=== PATIENT | male | born 1975 | race Caucasian/White ===

== ENCOUNTER 2022-04-23 18:28 | Emergency (ER) | payer OTHER ==
[2022-04-23 18:38] VITALS: BP 137/78
--- NOTE | 2022-04-23 19:01 | XRAY Report ---
PROCEDURE: Shoulder 3 View LT INDICATIONS: GLF; severe left shoulder pain TECHNIQUE: Views of the location were acquired. COMPARISON: None. FINDINGS: Bones: No fractures or dislocations. No suspicious bony lesions. Soft tissues: No suspicious soft tissue calcifications. IMPRESSION: Normal left shoulder Reviewed by: Shane Puckett on 04/23/2022 7:00 PM PDT Approved by: Shane Puckett on 04/23/2022 7:00 PM PDT Station ID: [id number]
--- NOTE | 2022-04-23 19:35 | ED Physician Documentation ---
PD HPI UPPER EXT INJURY - Stated complaint Stated Complaint: LT SHOULDER INJ - Chief complaint Chief Complaint: Trauma Ext - History obtained from History obtained from: Patient - History of Present Illness Location: Left, Shoulder Type of injury: Fall Timing - onset: Today - Additonal information Additional information: 47-year-old male presents for left shoulder pain after falling from a deck just prior to arrival. Patient states that he tripped and fell and landed approximately 4 to 5 feet directly onto the side of his left shoulder. Denies hitting his head, denies loss of consciousness. Endorses pain with movement of his left shoulder and difficulty moving due to pain. Denies numbness, weakness, tingling of his extremity. Denies laceration, abrasion. Points to his left upper shoulder as source of pain, denies any elbow or wrist tenderness. Review of Systems Ten Systems: 10 systems reviewed and negative Constitutional: denies: Fever, Chills, Myalgias GI: denies: Abdominal Pain, Abdominal Swelling, Nausea Skin: denies: Rash, Lesions Musculoskeletal: reports: Joint pain. denies: Neck pain, Back pain PD PAST MEDICAL HISTORY - Past Medical History Past Medical History: No - Present Medications Home Medications: Ambulatory Orders Medication Instructions Recorded Confirmed Naproxen 500 mg PO BID PRN #20 tablet 04/23/22 methocarbamoL [Robaxin] 500 mg PO Q6H #20 tablet 04/23/22 - Allergies Allergies/Adverse Reactions: Allergies Allergy/AdvReac Type Severity Reaction Status Date / Time No Known Drug Allergies Allergy Verified 04/23/22 18:35 PD ED PE NORMAL - Vitals Vital signs reviewed: Yes - General General: Alert and oriented X 3, No acute distress, Well developed/nourished - HEENT HEENT: Atraumatic, PERRL, EOMI, Ears normal - Neck Neck: Supple, no meningeal sign, No bony TTP, No adenopathy, C-Spine cleared by NEXUS criteria - Cardiac Cardiac: RRR, No murmur, Strong equal pulses - Abdomen Abdomen: Soft, Non tender, Non distended - Male Male : Deferred - Rectal Rectal: Deferred - Back Back: No CVA TTP, No spinal TTP - Derm Derm: Normal color, Warm and dry, No rash - Extremities Extremities: No deformity, No edema, No calf tenderness / cord, Other (Point tenderness over deltoid/triceps, no deformity, ROM limited due to pain) - Neuro Neuro: Alert and oriented X 3, 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 Decreased ROM 2/2 pain. No fracture on XR. Patient states he has sling at home. Patient counseled on importance of range of motion exercises to avoid stiffening the joint. Given muscle relaxers, NSAIDs, percocet pack for pain. Neurovascularly intact at time of DC. Departure - Departure Disposition: 01 Home, Self Care Clinical Impression: Shoulder injury Condition: Stable Instructions: Exercises Shoulder Car Servicer Rotation, ED Contusion Upper Extr Ch Prescriptions: Naproxen 500 mg PO BID PRN #20 tablet PRN Reason: Pain methocarbamoL [Robaxin] 500 mg PO Q6H #20 tablet Comments: Take Tylenol and the anti-inflammatory prescribed as needed for pain. The muscle relaxer should also help for pain. Apply ice for comfort. Wear sling for comfort as desired. Make sure to continue to perform range of motion exercises in your affected shoulder to avoid freezing of the joint. If in 1 week's time he continued to have severe pain I highly recommend following up with orthopedic surgery. Return immediately for numbness, weakness, decreased potline monitor strength in your affected extremity. You are also being sent home with a Percocet prepack. Use these only in case of breakthrough pain. Discharge Date/Time: 04/23/22 20:00
[2022-04-23] MEDS ORDERED: methocarbamoL 500 MG TABLET PO STA (19:41)
[2022-04-23] MEDS ORDERED: ACETAMINOPHEN 325 MG TABLET PO STA (19:41)
[2022-04-23] MEDS ORDERED: oxyCODONE/ACET 5/325 Prepack 4 PO STA (19:41)
[2022-04-23] MEDS ORDERED: oxyCODONE 5 MG TABLET PO STA (19:41)
[2022-04-23] MEDS ORDERED: KETOROLAC 30 MG/ML VIAL IM STA (19:41)
== END 2022-04-23 20:00 | disposition home or self-care (01) ==
LOC: ED 18:28
DX: S49.92XA Unspecified injury of left shoulder and upper arm, initial encounter (principal); W01.0XXA Fall on same level from slipping, tripping and stumbling without subsequent striking against object, initial encounter
CPT/HCPCS: 73030; 96372; 99282; 99283; A9270

== ENCOUNTER 2022-05-31 12:47 | Emergency (ER) | payer OTHER ==
[2022-05-31] MEDS ORDERED: KETOROLAC 60 MG/2 ML VIAL IM STA (14:39)
[2022-05-31] MEDS ORDERED: HYDROmorphone 1 MG/ML CARPUJECT IM STA (14:39)
--- NOTE | 2022-05-31 14:42 | ED Physician Documentation ---
PD HPI BACK PAIN - Stated complaint Stated Complaint: BACK PX - Chief complaint Chief Complaint: Trauma Ch/Bk - History obtained from History obtained from: Patient - Additional information Additional information: The patient comes to the emergency department chief complaint of left mid to upper back pain after slipping and falling on wooden stairs 2 days ago and hitting the same area of his back on the left. He denies pain in his spine itself. He states it feels more like the posterior aspect of his rib cage. He is not short of breath but states it hurts to take a deep breath. No lower extremity edema. No injuries in any other place. Review of Systems Ten Systems: 10 systems reviewed and negative Constitutional: reports: Reviewed and negative Eyes: reports: Reviewed and negative Ears: reports: Reviewed and negative Nose: reports: Reviewed and negative Throat: reports: Reviewed and negative Cardiac: reports: Reviewed and negative Respiratory: reports: Reviewed and negative GI: reports: Reviewed and negative : reports: Reviewed and negative Skin: reports: Reviewed and negative Musculoskeletal: reports: Back pain Neurologic: reports: Reviewed and negative Psychiatric: reports: Reviewed and negative Endocrine: reports: Reviewed and negative Immunocompromised: reports: Reviewed and negative PD PAST MEDICAL HISTORY - Past Medical History Past Medical History: Yes Cardiovascular: High cholesterol Musculoskeletal: Chronic back pain - Past Surgical History Past Surgical History: No - Present Medications Home Medications: Ambulatory Orders Medication Instructions Recorded Confirmed Atorvastatin Calcium [Lipitor] 80 mg PO DAILY 05/31/22 05/31/22 Docusate Sodium 100Mg Capsule 100 mg PO DAILY PRN #20 cap 05/31/22 [Colace 100Mg Capsule] HYDROcod/ACETAM 5/325 [Higdon 5/325] 1 - 2 tablet PO Q6H PRN #20 tablet 05/31/22 - Allergies Allergies/Adverse Reactions: Allergies Allergy/AdvReac Type Severity Reaction Status Date / Time No Known Drug Allergies Allergy Verified 05/31/22 13:02 - Social History Does the pt smoke?: No Smoking Status: Former smoker Does the pt have substance abuse?: No - POLST Patient has POLST: No PD ED PE NORMAL - Vitals Vital signs reviewed: Yes - General General: Alert and oriented X 3, No acute distress, Well developed/nourished, Ot her (The patient appears moderately uncomfortable but otherwise in no apparent distress.) - HEENT HEENT: Atraumatic, PERRL, EOMI, Moist mucous membranes - Neck Neck: Supple, no meningeal sign - Cardiac Cardiac: RRR, No murmur, Strong equal pulses - Respiratory Respiratory: No respiratory distress, Clear bilaterally - Abdomen Abdomen: Soft, Non tender, Non distended - Back Back: No CVA TTP, No spinal TTP, Other (Tenderness to palpation over the left back at approximately the sixth through eighth rib level without crepitus or step-off.) - Derm Derm: Normal color, Warm and dry, No rash - Extremities Extremities: No deformity, No edema, No calf tenderness / cord - Neuro Neuro: Alert and oriented X 3, manager sign 2-12 intact, Normal speech - Psych Psych: Normal mood, Normal affect Results - Vitals Vitals: Oxygen O2 Source Room air - Rads (name of study) L ribs/chest XR Radiology: Final report received, EMP read indepedently, See rad report (neg) PD MEDICAL DECISION MAKING - ED course Complexity details: reviewed results, re-evaluated patient, considered differential, d/w patient ED course: The patient was treated symptomatically with Toradol and Dilaudid and worked up with x-ray series of the left ribs and chest, which was negative. I have discussed symptomatic management at home, as well as the usual indications for return. Departure - Departure Disposition: 01 Home, Self Care Clinical Impression: Contusion of rib on left side Qualifiers: Encounter type: initial encounter Qualified Code(s): S20.212A - Contusion of left front wall of thorax, initial encounter Condition: Stable Instructions: ED Contusion Rib Prescriptions: Docusate Sodium 100Mg Capsule [Colace 100Mg Capsule] 100 mg PO DAILY PRN #20 cap PRN Reason: Constipation HYDROcod/ACETAM 5/325 [Higdon 5/325] 1 - 2 tablet PO Q6H PRN #20 tablet PRN Reason: Pain Comments: Your x-ray did not show any broken bones. You may have sharply bruised the ribs in the back, as well as the associated soft tissues and this can cause quite a bit of pain. A prescription for pain medication as well as a stool softener has been [facility] to [facility] in [place]. You may take these medications as needed. You may also take an anti-inflammatory such as ibuprofen to augment the effects of the prescribed medications, as well. Symptoms should gradually improve over the next 2 to 3 weeks. Discharge Date/Time: 05/31/22 16:31
--- NOTE | 2022-05-31 15:11 | XRAY Report ---
PROCEDURE: Ribs w/PA Chest LT INDICATIONS: fall/blunt trauma/L posterior rib pain TECHNIQUE: 3 views of the left ribs were acquired, along with a single view chest. COMPARISON: None FINDINGS: Surgical changes and devices: None. Bones and chest wall: No fractures or dislocations. No suspicious bony lesions. Overlying soft tis sues appear unremarkable. Lungs and pleura: No pleural effusions or pneumothorax. Lungs appear clear. Mediastinum: Mediastinal contours appear normal. Heart size is normal. IMPRESSION: No visualized acute fracture or dislocation. However, occult injury cannot be excluded. Recommend gilberto rt interval imaging follow-up in 7-10 days as clinically indicated for additional evaluation. Reviewed by: Nhung Santiago MD on 05/31/2022 3:09 PM PDT Approved by: Nhung Santiago MD on 05/31/2022 3:09 PM PDT Station ID: [id number]
[2022-05-31 16:32] VITALS: BP 166/107
== END 2022-05-31 16:31 | disposition home or self-care (01) ==
LOC: ED 12:47
DX: S20.212A Contusion of left front wall of thorax, initial encounter (principal); W10.9XXA Fall (on) (from) unspecified stairs and steps, initial encounter; Z87.891 Personal history of nicotine dependence
CPT/HCPCS: 71101; 96372; 99282; 99283; J1170

== ENCOUNTER 2024-01-12 08:03 | Outpatient (CLI) | payer OTHER ==
--- NOTE | 2024-01-12 16:38 | Ultrasound Report ---
PROCEDURE: Abdomen Limited INDICATIONS: ABN LIVER FUNCTION TEST TECHNIQUE: Real-time focused scanning was performed of the abdomen, with image documentation. COMPARISONS: None. FINDINGS: Liver: Liver is normal in size and increased in echotexture. Gallbladder: 1.6 cm mobile focus of echogenicity is present within the gallbladder neck. Multiple are as of nonmobile echogenicity are identified. The bladder wall measures 2.5 mm. Biliary ducts: Intrahepatic bile ducts are non-dilated. Extrahepatic bile duct caliber measures 4 m m. Normal is 6-7 mm or less in diameter, or 10 mm or less post-cholecystectomy. Pancreas: Visualized portions of the pancreas are sonographically normal. Right kidney: Normal in size and echotexture. Right kidney measures 11.6 cm long. No hydronephrosis or nephrolithiasis. No solid masses. No complex renal cystic lesions which require follow-up. Aorta: Visualized aorta is normal in caliber at less than 3 cm. IVC: Intrahepatic inferior vena cava is patent. Miscellaneous: No free abdominal fluid. IMPRESSION: Multiple focus of increased echogenicity within the gallbladder most consistent with stones. Wall thi ckness is normal. In addition, multiple nonmobile foci of echogenicity are present within the gallbladder suggestive of adherent sludge versus polyps. Reviewed by: Nhung Santiago MD on 01/12/2024 4:37 PM PDT Approved by: Nhung Santiago MD on 01/12/2024 4:37 PM PDT Station ID: [id number]
== END 2024-01-12 08:04 | disposition home or self-care (01) ==
LOC: DI 08:03
PROVIDERS: ATTEND Internal Medicine
DX: R94.5 Abnormal results of liver function studies (principal)